=== PATIENT | female | born 1990 | race Caucasian/White ===

== ENCOUNTER 2018-09-14 01:31 | Inpatient (IN) | payer OTHER ==
[~2018-09-14] VITALS: Ht 177.8 cm; Wt 87.5 kg
[2018-09-14] MEDS ORDERED: LACT. RINGERS/OXYTOCIN 20UNITS 1,000 ML IV SCH (02:03)
[2018-09-14] MEDS ORDERED: CARBOPROST TROMETHAMINE 250 MCG/1ML VIAL IM PRN (02:15)
[2018-09-14] MEDS ORDERED: DERMOPLAST 60ML BOTTLE TOP PRN (02:15)
[2018-09-14] MEDS ORDERED: WITCH HAZEL-GLYCERIN PAD TOP PRN (02:15)
[2018-09-14] MEDS ORDERED: METHYLERGONOVINE MALEATE 0.2 MG/ML AMP IM PRN (02:15)
[2018-09-14] MEDS ORDERED: LIDOCAINE 2%HCL (LOCAL ANESTH.) INJ 20ML MDV ID ONE (02:15)
[2018-09-14] MEDS ORDERED: PHISODERM TOP SOLN 240ML BTL TOP PRN (02:15)
[2018-09-14] MEDS ORDERED: IBUPROFEN 600 MG TAB PO ONE (02:40)
[2018-09-14 03:07] LABS: Basophils # (auto) 0 uL; Basophils % (auto) 0.2 % (0.0-2.0); Eosinophils # (auto) 0 uL; Eosinophils % (auto) 0.1 % (0.0-7.0); Hematocrit 35.1 % (36.0-46.0); Hemoglobin 11.9 g/dL (12.2-16.2); Lymphocytes % (auto) 10.2 % (10.0-50.0); Mean Corpuscular Hemoglobin 28.2 pg (28.0-32.0); Mean Corpuscular Hgb Conc. 33.9 g/dL (32.0-36.0); Mean Corpuscular Volume 83.2 fL (80.0-100.0); Monocytes # (auto) 1.1 uL; Monocytes % (auto) 5.5 % (0.0-12.0); Neutrophils # (auto) 16.7 uL; Platelet Count (auto) 194 10^3/uL (140-450); Red Blood Cells 4.22 10^6/uL (4.0-5.20); Red Cell Distribution Width 13.1 % (11.8-14.3); White Blood Cell 19.9 10^3/uL (4.4-10.8)
--- NOTE | 2018-09-14 03:31 | NUR ---
Ambulation: 20g periipheral IV to right hand saline locked. Patient OOB with standby assistance by RN. Patient ambulated to bathroom with steady gait. Patient able to void 500 ml without difficulty. [facility] teaching provided with returned demonstration by patient. Clean peripad, dermoplast and tucks applied. Clean gown provided and bed linen changed. Patient ambulated back to bed with steady gait and no distress noted.
[2018-09-14 03:32] LABS: INR 0.88 (0.9-1.15); Partial Thromboplastin Time 25.7 sec (23.78-33.04); Prothrombin Time 9.5 sec (9.27-12.13)
[2018-09-14 03:35] LABS: Albumin 2.4 g/dL (3.4-5.0); BUN/Creatinine Ratio 20.7; Calcium 8.4 mg/dL (8.5-10.1); Potassium 3.9 mmol/L (3.5-5.1)
[2018-09-14 03:41] LABS: Bilirubin, Total 0.3 mg/dL (0.2-1.0); Total Protein 6.2 g/dL (6.4-8.2); Uric Acid 3.3 mg/dL (2.6-6.0)
[2018-09-14 05:40] LABS: Urine Bacteria FEW /hpf (None Seen); Urine Blood 3+ /uL (Negative); Urine Specific Gravity 1.004 (1.001-1.035); Urine WBC 15 /hpf (0 - 5)
[2018-09-14 05:46] LABS: Alcohol, Urine < 3.0 mg/dL (0-5); Amphetamine Screen, Urine NEGATIVE (NEGATIVE); Barbiturate Scree,Urine NEGATIVE (NEGATIVE); Benzodiazephine Screen, Urine NEGATIVE (NEGATIVE); Cannabinoid Screen, Urine NEGATIVE (NEGATIVE); Cocaine Screen, Urine NEGATIVE (NEGATIVE); Opiate Scree,Urine NEGATIVE (NEGATIVE); Phencyclidine Screen, Urine NEGATIVE (NEGATIVE)
[2018-09-14 06:53] VITALS: BP 105/55
[2018-09-14] MEDS ORDERED: PREN-96 PO (07:03)
[2018-09-14] MEDS ORDERED: ACETAMINOPHEN 325 MG TAB PO PRN (07:15)
[2018-09-14 10:55] VITALS: BP 105/57
--- NOTE | 2018-09-14 13:15 | NUR ---
IV removal IV DC'd with clean sterile technique, catheter fully intact. Pressure dressing applied to site. Patient tolerated well. Signed: 09/14/18 at 1746 by SN KRISTINE <Co-Signature Required> Co-Signed: 09/14/18 at 1746 by Mitch Mishra RN
[2018-09-14 15:30] VITALS: BP 107/55
[2018-09-14] MEDS: IBUPROFEN 600 MG TAB PO PRN (16:29)
[2018-09-14 19:30] VITALS: BP 109/56
[2018-09-14 23:10] VITALS: BP 106/57
[2018-09-15 03:15] VITALS: BP 111/61
[2018-09-15 06:06] LABS: RPR Non Reactive (Non Reactive)
[2018-09-15] MEDS: IBUPROFEN 600 MG TAB PO PRN (07:01)
[2018-09-15 07:41] VITALS: BP 102/66
[2018-09-15 10:07] LABS: Rubella Antibodies, IgG 1.44 index (Immune >0.99)
[2018-09-15 10:49] VITALS: BP 111/66
--- NOTE | 2018-09-15 11:00 | NUR ---
Discharge: Discharge instructions given as ordered. Pt encouraged to follow up with [facility] as instructed. All questions and concerns addressed. Patient verbalized understanding. Medication reconciliation completed and copy given to patient. Patient refused influenza and t-dap vaccines and states she is up to date.. Patient encouraged to prepare to depart unit.
--- NOTE | 2018-09-15 11:30 | NUR ---
Discharge: Patient taken to vehicle via AMBULATION PER PATIENTS REQUEST with all personal belongings, accompanied by staff and family members and patients mother. No distress noted at time of departure, no adverse changes in status since initial assessment.
== END 2018-09-15 11:30 | disposition home or self-care (01) | DRG 807 ==
LOC: OBSVTOIN 01:31 → LDRP 01:31
PROVIDERS: ADMIT Obstetrics & Gynecology; ATTEND Obstetrics & Gynecology
PROC: 0HQ9XZZ Repair Perineum Skin, External Approach (ICD-10-PCS; principal; 2018-09-14)
PROC: 10E0XZZ Delivery of Products of Conception, External Approach (ICD-10-PCS; 2018-09-14)
DX: O70.0 First degree perineal laceration during delivery (principal); Z37.0 Single live birth; Z3A.39 39 weeks gestation of pregnancy
CPT/HCPCS: 36415; 59414; 80053; 80307; 81001; 84550; 85025; 85610; 85730; 86592; 86703; 86762; 86850; 86900; 86901; 87340; 96372; G0378